=== PATIENT | female | born 1995 | race Caucasian/White ===

== ENCOUNTER 2019-01-23 12:13 | Emergency (ER) | payer OTHER ==
[2019-01-23 12:18] VITALS: BP 122/77; PULSE 69; RESP 20; TEMP 97.9
--- NOTE | 2019-01-23 12:43 | ED ---
Skin/Abscess/FB HPI - General Chief complaint: Skin/Abscess/Foreign Body Stated complaint: bug bite Time Seen by Provider: 01/23/19 12:20 Source: patient Limitations: no limitations - History of Present Illness Initial comments: 23-year-old female presents today for chief complaint of bug bite with possible infection. Patient states she was bit 2 days prior by mosquitoes. She states she has multiple bites all over her body. Patient states that this would appear more complaint. She had been attempting to use [id number] Benadryl for symptoms. Patient states that the redness surrounding the bug bite has been spreading for the past day. She states it has become increasingly itchy nose as well as pain. Patient is concerned it was infected and presents emergency room for evaluation. Denies fever or flu like symptoms. Patient denies history of MRSA. Patient states she has no diabetes. Patient denies any recent antibiotic use. Remaining review of system negative. Upon arrival patient appears well there is no signs of acute distress. Denies . - Related Data Previous Rx's Medication Instructions Recorded Cephalexin [Keflex] 500 mg PO Q6HR 5 Days #20 cap 01/23/19 Allergies Allergy/AdvReac Type Severity Reaction Status Date / Time No Known Allergies Allergy Verified 01/23/19 12:39 Review of Systems ROS Statement: Those systems with pertinent positive or pertinent negative responses have been documented in the HPI. ROS Other: All systems not noted in ROS Statement are negative. Past Medical History Past Medical History: No Reported History History of Any Multi-Drug Resistant Organisms: None Reported Past Surgical History: No Surgical Hx Reported Past Psychological History: No Psychological Hx Reported Smoking Status: Never smoker Past Alcohol Use History: Occasional Past Drug Use History: None Reported General Exam - General Exam Comments Initial Comments: General: The patient is awake and alert, in no distress, and does not appear acutely ill. Eye: Pupils are equal, round and reactive to light, extra-ocular movements are intact. No nystagmus. There is normal conjunctiva bilaterally. No signs of icterus. Cardiovascular: There is a regular rate and rhythm. No murmur, rub or gallop is appreciated. Respiratory: Lungs are clear to auscultation, respirations are non-labored, breath sounds are equal. No wheezes, stridor, rales, or rhonchi. Musculoskeletal: Normal ROM, no tenderness. Strength 5/5. Sensation intact. Pulses equal bilaterally 2+. Neurological: A&O x 3. CN II-XII intact, There are no obvious motor or sensory deficits. Coordination appears grossly intact. Speech is normal. Skin: Skin is warm and dry. Small break in the skin with surrounding erythema, ill defined margins. Patietn outlined area with pen, no extension beyond borders. Psychiatric: Cooperative, appropriate mood & affect, normal judgment. Limitations: no limitations Course Vital Signs 01/23/19 12:15 Temperature 97.9 F Pulse Rate 69 Respiratory 20 Rate Blood Pressure 122/77 O2 Sat by Pulse 98 Oximetry Medical Decision Making - Medical Decision Making 23-year-old female presenting for possible infection. Patient has a insect bite with break in the skin appear on the left forearm. There is surrounding cellulitis. Appears very mild. No abscess. Patient will be treated with Keflex. Patient denies . Patient denies any constitutional symptoms. Patient appears well. Return parameters and appropriate in this patient medications were discussed with patient. Patient is agreeable care plan as well as return parameters. Patient was discharged appearing well Disposition Clinical Impression: Bug bite, Cellulitis Disposition: HOME SELF-CARE Condition: Good Instructions (If sedation given, give patient instructions): Cellulitis (ED) Additional Instructions: Please use medication as discussed. Please follow-up with family doctor in the next 2 days of symptoms have not improved. Please return to emergency room if the symptoms increase or worsen or for any other concerns. Prescriptions: Cephalexin [Keflex] 500 mg PO Q6HR 5 Days #20 cap Is patient prescribed a controlled substance at d/c from ED?: No Referrals: None,Stated [Primary Care Provider] - 1-2 days Time of Disposition: 12:43
== END 2019-01-23 13:02 | disposition home or self-care (01) ==
LOC: EC 12:13
DX: S50.862A Insect bite (nonvenomous) of left forearm, initial encounter (principal); L03.114 Cellulitis of left upper limb; W57.XXXA Bitten or stung by nonvenomous insect and other nonvenomous arthropods, initial encounter
CPT/HCPCS: 99281